=== PATIENT | female | born 1965 | race Caucasian/White ===

== ENCOUNTER → 2020-04-14 | Outpatient (CLI) | payer OTHER | LOC: US 09:03 → NM 10:00 | DX: K75.81 Nonalcoholic steatohepatitis (NASH) (principal); R93.3 Abnormal findings on diagnostic imaging of other parts of digestive tract; R93.2 Abnormal findings on diagnostic imaging of liver and biliary tract | CPT/HCPCS: 36415; 76705; 78264; 80076; A9541 ==